=== PATIENT | female | born 1985 | race Caucasian/White ===

== ENCOUNTER 2023-09-19 09:43 | Day surgery (SDC) | payer SELFPAY ==
[2023-09-18 10:54] LABS: Specific Gravity 1.018 (1.005-1.030); Urine Bacteria None Seen /HPF (<20); Urine Bilirubin NEGATIVE (Negative); Urine Blood Negative (Negative); Urine Clarity Extremely Turbid (Clear); Urine Color Yellow (Yellow); Urine Culture Reflex Order NOT NEEDED; Urine Glucose NEGATIVE (Negative); Urine Ketones NEGATIVE (Negative); Urine Microscopic Reflex YN ORDER UMIC; Urine Mucus Slight /HPF (None Seen); Urine Nitrite NEGATIVE (Negative); Urine Protein NEGATIVE (Negative); Urine RBC <5 /HPF (None Seen); Urine Urobilinogen Normal (Normal); Urine WBC <5 /HPF (<5); Urine pH 7.5 (5.0-7.0)
[2023-09-18 11:33] LABS: Absolute Eosinophils 0.1 K/uL (0-0.5); Absolute Lymphocytes (CBC) 2.2 K/uL (0.7-4.9); Absolute Monocytes 0.5 K/uL (0.1-1.3); Absolute Neutrophil 3.5 K/uL (1.8-8.0); Basophils % 0.5 % (0-1.3); Eosinophils % 1.6 % (0-4.4); Hematocrit 38.8 % (36.0-45.0); Hemoglobin 12.8 g/dL (12.0-15.0); Lymphocytes % 34.6 % (15.3-44.8); MCH 29.8 pg (27.0-35.0); MCV 90.4 fL (80-100); Monocytes % 7.5 % (3.3-12.3); Neutrophils % 55.8 % (41.7-73.7); Platelets 287 thou/uL (152-406); Red Cell Distribution Width 14.1 % (12.1-15.2)
[2023-09-19] MEDS: Ringers Lactate 1,000 ML IV ONE (10:00)
[2023-09-19] MEDS: SCOPOLAMINE HYDROBROMIDE PATCH TD ONE (10:05)
[2023-09-19] MEDS: BUPIVACAINE 0.25% PF 30 ML VIAL ONE (11:46)
[2023-09-19] MEDS: CEFAZOLIN SODIUM 2 GM/VIAL ONE (11:46)
[2023-09-19] MEDS ORDERED: LIDOCAINE 2% MPF 5 ML VIAL ONE (12:07)
[2023-09-19] MEDS ORDERED: NEOSTIGMINE 1 MG/ML -10 ML VIAL ONE (12:07)
[2023-09-19] MEDS ORDERED: ONDANSETRON 4 MG/2 ML VIAL ONE (12:07)
[2023-09-19] MEDS ORDERED: GLYCOPYRROLATE 0.2 MG/ML SYR ONE (12:07)
[2023-09-19] MEDS ORDERED: FENTANYL CITR 100 MCG/2 ML ONE ×2 (12:08→13:30)
[2023-09-19] MEDS ORDERED: propofoL 200 MG/20 ML VIAL IV ONE (12:08)
[2023-09-19] MEDS ORDERED: ROCURONIUM 50 MG/5 ML VIAL IV ONE ×2 (12:08→13:42)
[2023-09-19] MEDS ORDERED: MIDAZOLAM HCL 2 MG/2 ML INJ ONE (12:09)
[2023-09-19] MEDS ORDERED: dexAMETHasone 10 MG/ML VIAL ONE (12:15)
[2023-09-19] MEDS ORDERED: Ringers Lactate 1,000 ML IV ONE (14:57)
--- NOTE | 2023-09-19 15:05 | EKG ---
Test Date: 2023-09-18 Test Time: 10:12:16 Pool Coordinator: ZACKERY MEASUREMENT RESULTS: Intervals: Rate: 69 [place]: 130 QRSD: 84 QT: 382 QTc: 409 [place]: P: 61 [place]: 130 QRS: 78 T: 63 INTERPRETIVE STATEMENTS: Normal sinus rhythm Normal ECG No previous ECG available for comparison Electronically Signed On 09-19-23 15:00:31 CDT by Torito Lo
[2023-09-19] MEDS ORDERED: MEPERIDINE HCL 25 MG/ML SYR IM PRN (15:15)
[2023-09-19] MEDS ORDERED: PROMETHAZINE INJ 25 MG/ML AMP IV PRN (15:15)
[2023-09-19] MEDS ORDERED: PROMETHAZINE 25 MG TABLET PO PRN (15:15)
[2023-09-19] MEDS ORDERED: IBUPROFEN 200 MG TAB PO PRN (15:15)
--- NOTE | 2023-09-19 15:22 | P.BOP ---
Preoperative diagnosis: pelvic mass, LLQ pain, menorrhagia, Dysmenorrhea Postoperative diagnosis: same and left ovarian teratoma and torsion, small bowel adhesions Primary procedure: diag hystsc/ d/c;Diag lapsc/washings/LSO,RS, lysis of small bowel adhesions Delinquent Tax Collector: Charmaine Yeh Estimated blood loss: 50 Specimen: left ov w/mass and tube attached, R tube, washings Findings: L ov teratoma w/torsion,necrosis,sb adhesions to mass,fibroids Anesthesia: General Complications: None Transferred to: Recovery Room Condition: Good
[2023-09-19] MEDS: HYDROMORPHONE HCL 1 MG/ML INJ ONE (15:45)
[2023-09-19] MEDS ORDERED: HYDROCODONE/APAP 5/325 MG TAB ONE (16:37)
[2023-09-19] MEDS: HYDROCODONE/APAP 5/325 MG TAB PO PRN (16:38)
[2023-09-19 17:18] VITALS: TEMP 97.9
[2023-09-19 17:36] VITALS: BP 93/54; O2SAT 100
[2023-09-20] MEDS ORDERED: HOME MED 1 EA UNK (Multivitamin [Multivitamin] Tablet) PO SCH (09:00)
--- NOTE | 2023-09-22 06:03 | OP ---
Date of Procedure: 09/19/2023 Surgeon: Renee Catalan MD Butadiene Converter Helper: Charmaine Beltran. Preoperative Diagnoses: Pelvic mass, left lower quadrant pain, menorrhagia, and dysmenorrhea. Postoperative Diagnoses: Pelvic mass, left lower quadrant pain, menorrhagia, dysmenorrhea, and left ovarian teratoma with torsion and necrosis of small bowel adhesions to the mass. Procedures Performed: 1.Diagnostic hysteroscopy, dilatation and curettage. 2.Diagnostic laparoscopy with pelvic washings, left salpingo-oophorectomy, right salpingectomy, lysi s of small bowel adhesions, which 50% of the case. 3.Mini lap for extraction of the pelvic mass. Estimated Blood Loss: 50. Anesthesia: General endotracheal. Specimens: Left ovarian mass and tube attached. Then, the right tube and pelvic washings. Findings: Left ovarian teratoma with torsion and necrosis from torsion. There were 2 twist on the p edicle of the IP ligament and the tube was coiled around as well. The hydrosalpinx due to the small bowel adhesions to the mass, ileum were attached to the medial right and posterior aspect o f the entire mass. The mass was adhered to the anterior abdominal wall likely from the progressive t orsion, followed by necrosis and inflammation with adhesions. anterior wall in the lower part of the anterior body of the uterus. Complications: No complications. Disposition: Transferred to the recovery room in stable condition. Indication: The patient is a 38-year-old multigravida, who has completed with childbearing. 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 Then, she has had a heavy men strual bleeding and periods that had significant dysmenorrhea and was advised to have a procedure don e for treatment of her bleeding. This chronic. She has been coping with this without any intervention. She had acute onset of left lower quadrant pain for which she was evaluated in the ER at [facility] and she was referred to a general surgeon Dr. Atul Toledo who then referred the patient to me. This patient was seen last week in the office due to her pain, then on evaluation, it appeared to be adnexal mass 10 cm. There was also the primary mass on the left side and questionable mass on the right side as w ell. So, we discussed the different etiology of her pain and the pelvic mass. The pelvic mass could be connected and her bleeding and dysmenorrhea could be connected to either endometriosis or bleedin g and then her ovarian mass could be a benign neoplastic mass or malignant neoplastic masses. The ri sk of malignancy are very small given the nature of her tumor and the onset of her pain. Her CA-125 was slightly elevated over 112. However, given the acuity, there was a possibility that this is tors ion and so continued to have the patient follow up with me to have the procedure done without a refer ral to an oncologist. The small risk of cancer was discussed with the patient, although i t was very negligible due to the higher suspicion of teratoma on CT appearance. Since she has this m ass, the chance that we can preserve the ovary are small, oophorectomy was discussed. Bilateral salp ingectomy for risk reduction of ovarian cancer as the patient has completed childbearing was reviewed with the patient and she was agreeable to it. She understood bilaterally and if there wa s one seen, then that would be removed as well. Discussed about the evaluation of heavy bleeding and cramps and that hysteroscopy, D and C is minimum that I would recommend. She agreed to this and con sented. We also discussed about an ablation for treatment of her bleeding while she is under anesthe ashley for this procedure. the patient initially consented for this and then later called stephanie sawyer to have an objection as this is an extra added cause since she is unfunded and is self funded. So after we consented the patient this morning before the surgery, she consented for hysteroscopy, D an d C. Declined an ablation and diagnostic laparoscopy, bilateral salpingectomy, possible oophorectomy or ovarian cystectomy and pelvic washings. Procedure In Detail: After she was taken back to the OR, 2 g of Ancef were given. SCDs were placed. Time-out was done. Abdomen, vulva, vagina, and perineum were prepped and draped in a sterile fashi on. Arms were tucked by the side and positioning checked. Speculum placed to expose the cervix. Anterior lip grasped with 2 Allis clamps and dilated to 16-Juanito nch. Diagnostic SlimLine hysteroscope was used to enter the cervical canal through into the uterine cavity under direct vision. The patient has history of removal of coils placed for control and that was done hysteroscopically as well. Inconsistency with this. There were no coil that were documented. Entire cavity had thick endometri um, but no mass. Scope was removed and D and C was performed and Roberts was placed after dilating the urethra to 16-Serbian. This area was then draped. A 1 cm supraumbilical incision was made with a scalpel after injecting 0.25% Marcaine for local anesthesia. Fascia was incised, tagged with 0 Vicryl sutures. Peritoneum entered sharply. Godoy sson introduced after adequate insufflation. Site of entry was checked and was unremarkable upper ab dominal surfaces, no endometriosis or any other abnormal lesions or adhesions. Liver, gallbladder, s pleen all unremarkable and omentum as well. On looking at the pelvis, the pelvic mass with large, central, and looking to the origin of this, it was from left side as I followed the mouth onto the left lateral wall. Then, there were adhesions of this mass to the anterior abdominal wall to the retroperitoneal portion into the peritoneum over the bladder which was pulled down and then small loops of ileum and mesentery of the ileum as well. The medial aspect to the right and posterior aspects of the mass, these were all adhered. The right ovary appeared to be completely normal. A 10/11 suprapubic port and two 5 left lower and r ight lower quadrant ports were placed under direct vision. Pelvic washings were then performed and t he mass was untwisted by rotating in an anti-clockwise fashion two times. Then, the ovarian pedicle and ureter were all clearly defined and traced. Then, the IP ligament was elongated on the left side due to the torsion and so it was easy to take it down directly with the LigaSure. Then, the tube an d ovary were removed in their entirety using . The right tube was removed using the LigaSure and then there was hemostasis in all the bases of the d issection here. Two fibroids in the anterior wall were left alone. The small bowel and the loops of small bowel mesentery were first initially dissected which sharp dis section using the laparoscopic scissors and then with the tip of the suction as well. Gently, the en tire bowel wall that was dissected was all hemostatic and undisrupted. Once all inspection was done and completed, then I was able to pull this into a 15 bag, retrieved through the suprapubic port afte r all the ports were removed and fascia was closed with the umbilical area with tagged 0 Vicryl sutur es tied to each other and skin closed with 5-0 Monocryl. A mini lap was then made and a 5 cm incision was made on the skin and fascia was then extended on bot h sides. Then, the rectus muscles were dissected inferiorly and superiorly in the midline. The christopher toneum was then extended superiorly and laterally safeguarding the bladder. The mass was then pulled out, suctioned, and slowly morcellated and removed entirely through the incision without any spillag e. Once the bag and the mass were disposed, the gloves were changed and all instruments were changed . The peritoneum was then closed in a continuous running fashion with 3-0 Vicryl and the muscles katty t together with 2 interrupted 0 chromic sutures and fascia closed with 0 PDS in a continuous running fashion. Subcuticular sutures with chromic and subcutaneous sutures with 5-0 Monocryl. Roberts and e uterine manipulator were removed. Instrument, needle, and sponge counts were correct at the end of the case. The patient tolerated procedure well. She was recovered from anesthesia and taken to PAC U in stable condition. Her mother was debriefed about the procedure. Mother upset that hysterectomy was not performed at e same time. However, there was some ablation and hysterectomy and it was clarified. She understood that ablation was advised and the patient had personally declined at this time . MAHIN/ANDRZEJ Voice ID: [id number] Report ID: [id number]
== END 2023-09-19 17:10 | disposition home or self-care (01) ==
LOC: OR 09:43 → MERGE 13:00 → OR 17:10
PROVIDERS: ATTEND Obstetrics & Gynecology
PROC: 0UT6FZZ Resection of Left Fallopian Tube, Via Natural or Artificial Opening With Percutaneous Endoscopic Assistance (ICD-10-PCS; 2023-09-19)
PROC: 0UT1FZZ Resection of Left Ovary, Via Natural or Artificial Opening With Percutaneous Endoscopic Assistance (ICD-10-PCS; 2023-09-19)
PROC: 0UT5FZZ Resection of Right Fallopian Tube, Via Natural or Artificial Opening With Percutaneous Endoscopic Assistance (ICD-10-PCS; 2023-09-19)
PROC: 0DN84ZZ Release Small Intestine, Percutaneous Endoscopic Approach (ICD-10-PCS; 2023-09-19)
PROC: 0UDB8ZX Extraction of Endometrium, Via Natural or Artificial Opening Endoscopic, Diagnostic (ICD-10-PCS; principal; 2023-09-19 11:00)
DX: D27.1 Benign neoplasm of left ovary (principal); N70.92 Oophoritis, unspecified; I96 Gangrene, not elsewhere classified; N92.0 Excessive and frequent menstruation with regular cycle; R19.09 Other intra-abdominal and pelvic swelling, mass and lump; R10.32 Left lower quadrant pain; N94.6 Dysmenorrhea, unspecified; Z87.410 Personal history of cervical dysplasia
CPT/HCPCS: 58558; 58661; 93005; 85025; 81001; 36415; 86900; 88108; 86850; 86901; 88302; 88305; 88311; J2704; J2710; J2001; J2250; J3010 ×2; J1100; J1170; J2405; J7120 ×2